=== PATIENT | male | born 1995 | race Caucasian/White ===

== ENCOUNTER 2024-08-30 16:21 | Emergency (ER) | payer OTHER, SELFPAY ==
[2024-08-30 16:28] VITALS: BP 143/91; PULSE 73; TEMP 36.8; O2SAT 98; BMI 23.7
--- NOTE | 2024-08-30 16:39 | PC.NURSE ---
Nail in right hand middle finger, no bleeding at site, skin surrounding warm and pink.
--- NOTE | 2024-08-30 16:40 | XR_ITS ---
The [address] [address] Patient Name: CATARINO SOOD MRN: [id number] date: 1995 Sex: M Assigned Patient Location: ED.MAIN Current Patient Location: Accession/Order Number: [id number] Exam Date: 08/30/2024 16:35 Report Date: 08/30/2024 18:32 At the request of: JOE ACEVEDO Procedure: XR finger RT min 2V EXAM: XR finger RT min 2V HISTORY: Right middle finger FB COMPARISON: 04/18/2009 TECHNIQUE: 3 views of right third digit FINDINGS: There is no acute fracture or dislocation. Distal tip of the nail is noted overlying the dorsal third digit, at the level of the PIP joint and third proximal phalangeal neck. XR/XR finger RT min 2V IMPRESSION: Foreign body as described above. Electronically authenticated by: JAJA HILTON Date: 08/30/2024 18:32
[2024-08-30] MEDS: BUPIVACAINE HCL 0.25% PF 25 MG/10 ML VIAL INJ (17:08)
[2024-08-30] MEDS: CEPHALEXIN 500 MG CAPSULE PO (17:08)
--- NOTE | 2024-08-30 18:14 | ED_ITS ---
HPI HPI - Extremity Injury (Upper) General Chief Complaint: Extremity Injury, Upper Stated Complaint: UPPER EXTREMITY INJURY Time Seen by Provider: 08/30/24 16:28 Source: patient Mode of arrival: walk-in History of Present Illness HPI narrative: 28-year-old male presents to the emergency department with complaint of accidentally firing a nail from a nail gun through the top of his right index finger. Denies having any pain. Denies any motor or sensory changes, paresthesias. Bleeding controlled. Patient states last tetanus is less than 5 years old. Patient is right-handed Quality:?Penetrating trauma Severity:?Mild Timing:?Injury occurred shortly prior to arrival, constant Context: Normal setting and activity? Modifying factors:?None Associated symptoms: None Related Data Previous Rx's ?Medication ?Instructions ?Recorded cephalexin 500 mg capsule 500 mg PO QID 5 days #20 caps 08/30/24 Allergies Allergy/AdvReac Type Severity Reaction Status Date / Time No Known Drug Allergies Allergy Verified 08/30/24 16:30 Opioid HPI Opioid Management Most Recent Pain and Opioid Data: No Data to Display Review of Systems ROS Narrative CONST: Denies activity change, weakness MS: Denies arthralgias.? + joint swelling SKIN: + Wound. Denies color change NEURO: Denies numbness, paresthesias, weakness PFSH PFSH Social History Little interest or pleasure in doing things: not at all Feeling down, depressed, or hopeless: not at all Exam Narrative Exam Narrative: Vital signs noted Nurses notes reviewed CONST: Nontoxic, well appearing, well nourished, in no distress.? HENT: normocephalic, atraumatic. CV: 2+ palpable right radial pulse MS: Right middle finger: +tenderness,swelling to the PIP region of the dorsum, right middle finger through which nail is noted with insertion dorsally, exiting distally along the radial aspect.? No tenderness to the remainder of the finger.? No discoloration, crepitus, deformity, instability, warmth.? Active ROM is full with flexion and extension. ? Strength 5/5 NEURO: Sensory intact throughout and distal to the injury SKIN: intact, warm, dry.? + Puncture wound as previously discussed PSYCHIATRIC: normal mood, affect Constitutional Vital Signs, click to edit/add: Last Vital Signs Temp 98.2 F 08/30/24 16:28 Pulse 73 08/30/24 16:28 Resp 18 08/30/24 16:28 BP 143/91 H 08/30/24 16:28 Pulse Ox 98 08/30/24 16:28 O2 Del Method Room Air 08/30/24 16:28 Course Reevaluation(s) Reevaluation #1: Patient voices no complaint of pain. Nail was successfully removed. See procedure note. Discussed with patient results, plan, and disposition. He is agreeable with plan. Time: 18:10 Vital Signs Vital signs: Vital Signs Temperature 98.2 F 08/30/24 16:28 Pulse Rate 73 08/30/24 16:28 Respiratory Rate 18 08/30/24 16:28 Blood Pressure 143/91 H 08/30/24 16:28 Pulse Oximetry 98 08/30/24 16:28 Oxygen Delivery Method Room Air 08/30/24 16:28 Temperature 98.2 F 08/30/24 16:28 Pulse Rate 73 08/30/24 16:28 Respiratory Rate 18 08/30/24 16:28 Blood Pressure 143/91 H 08/30/24 16:28 Pulse Oximetry 98 08/30/24 16:28 Oxygen Delivery Method Room Air 08/30/24 16:28 MDM - Extremity Injury (Upper) MDM Narrative Medical decision making narrative: This is a pleasant 28-year-old male who presented to the emergency department after accidentally firing a nail from a nail gun through his right middle finger. Patient reports tetanus up-to-date. He voices no complaints of pain. Denies any motor or sensory changes, paresthesias. On arrival, afebrile, vital signs stable. On exam, nontoxic, well appearing patient, in no apparent distress. Through and through nail noted embedded to the dorsal aspect of his right middle finger. Patient displaying, without prompting, full range of motion of the finger with flexion extension. Denies any pain while doing so. Neurovascularly intact. Right index finger x-ray imaging, per radiologist reveals no acute fracture or dislocation. Distal tip of the nail is noted overlying the dorsal third, at the level of the PIP joint and the third proximal phalangeal neck. Soft tissue anesthetized and nail was successfully removed with manual manipulation. The wound was thoroughly irrigated with a Betadine, saline solution. He was given dose of Keflex in the emergency department prophylactically. Favor foreign body, nail gun injury right middle finger Fracture, dislocation less likely based on imaging History and Record Review Additional records reviewed: No prior records Management Independent interpretation: Right middle finger: Foreign body noted without osseous injury noted to the right third finger. Re-Evaluation: See ED Course Disposition ? The patient was discharged. Prescriptions sent to pharmacy: Keflex Patient placed in splint Patient advised rest, ice, elevation, compression Patient advised Ibuprofen/Tylenol as needed for pain Plan: Patient will be discharged to home. Condition at time of disposition: stable, improved. ? Advised to follow up with referral provider, name and number placed on discharge paperwork. Advised to return for any worsening and/or development of new, concerning signs or symptoms PLEASE NOTE: Portions of the medical record may have been produced using electronic estate administrator and may contain errors with respect to translation of words which may not have been identified prior to finalization of the chart. Medical Records Attestation: I reviewed the patient's medical records. Imaging Data right middle finger xray: Radiologist's impression: ITS Impressions Finger X-Ray 08/30/24 16:40 IMPRESSION: Foreign body as described above. Electronically authenticated by: JAJA HILTON Date: 08/30/2024 18:32 Discharge Plan Discharge Chief Complaint: Extremity Injury, Upper Clinical Impression: Puncture wound of finger of right hand Qualifiers: Encounter type: initial encounter Qualified Code(s): S61.239A - Puncture wound without foreign body of unspecified finger without damage to nail, initial encounter Injury of finger by nail gun Qualifiers: Encounter type: initial encounter Laterality: right Qualified Code(s): S69.91XA - Unspecified injury of right wrist, hand and finger(s), initial encounter Patient Disposition: Home, Self-Care Time of Disposition Decision: 18:10 Condition: Good Mode of Transportation: Private Vehicle Prescriptions / Home Meds: New cephalexin 500 mg capsule 500 mg PO QID 5 Days Qty: 20 0RF Print Language: Indonesian Instructions: Puncture Wound (ED) Referrals: Pradeep Estevez MD [Physician] - 1 week Discharge Date/Time: 08/30/24 18:28 Procedures ED FB Foreign Body Removal Foreign Body Removal Foreign Body Removal Site: hand Description of foreign body: other (nail) Sedation/Analgesia: other (bupvipicaine) Technique: manual removal Confirmed by: direct visualization Complications: none Post-procedure exam: awake, alert Neurovascular: normal capillary fill and distal light touch sensation intact Additional Comments: Nail track thoroughly irrigated with saline, Betadine solution, copious amounts. Bacitracin dressing of applied. Patient placed in splint.
[2024-08-30] MEDS: BACITRACIN OINTMENT 28.4 GM TUBE 1 APPLIC TOPICAL (18:19)
== END 2024-08-30 18:28 | disposition home or self-care (01) ==
PROVIDERS: Emergency Provider Emergency Medicine
DX: S61.242A Puncture wound with foreign body of right middle finger without damage to nail, initial encounter (principal); W45.0XXA Nail entering through skin, initial encounter; W29.4XXA Contact with nail gun, initial encounter
CPT/HCPCS: 29130; 73140; 99284; J0665

== ENCOUNTER 2024-10-31 19:46 | Emergency (ER) | payer OTHER, SELFPAY ==
[2024-10-31] VITALS (9 sets, daily range): BP systolic 116–129; BP diastolic 64–75; PULSE 70–76; TEMP 36.8; O2SAT 96–99; BMI 26.4
--- OUTSIDE RECORDS SUMMARY | 2024-10-31 19:52 | XMS_ITS | CCD ---
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 Name Role Phone George, Luke Unavailable Unavailable George, Luke Unavailable Unavailable ALEIDA ORMEO S Unavailable Unavailable ALEIDA ROMEO S Unavailable Unavailable AGUEDA, ALEIDA S Unavailable Unavailable GEORGE, LUKE A Unavailable Unavailable GEORGE, LUKE A Unavailable Unavailable GEORGE, LUKE A Unavailable Unavailable Geroge, Luke Unavailable Unavailable NO FAMILY, PHYSICIAN Primary Care Provider Unava ilable VERONICA Carvajal Attending Provider [phone] Broderick Carvajal Unavailable NO FAMILY, PHYSICIAN Primary Care Unavailable Elton Kovacs Attending Unavailable Elton Kovacs Admitting Unavailable Allergies Allergy Classification Reported Allergen(s) Allergy Type Date of Onset Reaction(s) Facility (3 sources) -No Environmental Allergies Allergy to substance (disorder) [facility] Work Phone: (3 sources) -No Known Food Allergies Allergy to substance (disorder) [facility] Work Phone: (3 sources) NO KNOWN DRUG ALLERGIES Allergy to substance (disorder) [facility] Work Phone: Medications Current Medications Medication Drug Class(es) Dates Sig (Normalized) Sig (Original) Aircast Sport Ankle Brace/Left - (1 source) Start: 08-06-2022 Aircast Sport Ankle Brace/Left - as directed Aug, Active buprenorphine 8 mg / naloxone 2 mg sublingual film (1 source) Partial Opioid Agonist, Opioid Antagonist Suboxone 8-2 MG 1 film under the tongue and allow to dissolve Sublingual Once a day Active busPIRone hydrochloride 7.5 mg oral tablet (1 source) Start: 10-31-2020 take 12 mg by mouth once daily Buspirone Active 12 MG PO Daily October 31, 2020 12:00am ibuprofen 600 mg oral tablet (1 source) Nonsteroidal Anti-inflammatory Drug Start: 10-31-2020 Ibuprofen Active 600 MG PO Every 6 hours October 31, 2020 12:00am do not exceed 4 doses in a 24 hour period Completed/Discontinued Medications Medication Drug Class(es) Dates Sig (Normalized) Sig (Original) amoxicillin 500 mg oral capsule (3 sources) Penicillin-class Antibacterial Start: 03-06-2015 End: 06-30-2015 take 1 capsule by mouth three times daily amoxicillin 500 mg oral capsule 03/06/2015 06/30/2015 take 1 capsule (500 mg) by oral route 3 times per day clindamycin 300 mg oral capsule (3 sources) Lincosamide Antibacterial Start: 03-06-2015 End: 06-30-2015 take 1 capsule by mouth three times daily clindamycin HCl 300 mg oral capsule 03/06/2015 06/30/2015 take 1 capsule by oral route 3 times a day hydrOXYzine hydrochloride 50 mg oral tablet (3 sources) Antihistamine Start: 04-13-2015 End: 01-07-2018 take 1 tablet by mouth three times daily as needed for anxiety hydroxyzine HCl 50 mg oral tablet 04/13/2015 01/07/2018 TAKE 1 TABLET BY MOUTH 3 TIMES DAILY NEEDED FOR ANXIETY PER DR BYERS 24 hr methylphenidate hydrochloride 54 mg extended release oral tablet (6 sources) Central Nervous System Stimulant End: 01-07-2018 take 1 tablet by mouth once daily in the morning Concerta 54 mg oral tablet extended release 24hr 01/07/2018 take 1 tablet (54 mg) by oral route once daily in the morning mirtazapine 30 mg oral tablet (3 sources) Start: 05-12-2015 End: 01-07-2018 take 1 tablet by mouth once daily at bedtime mirtazapine 30 mg oral tablet 05/12/2015 01/07/2018 take 1 tablet (30 mg) by oral route once daily at bedtime per dr Byers naltrexone hydrochloride 50 mg oral tablet (3 sources) Opioid Antagonist Start: 05-26-2015 End: 01-07-2018 take 1 tablet by mouth once naltrexone 50 mg oral tablet 05/26/2015 01/07/2018 TAKE 1 TABLET BY MOUTH EVER DAY PER DR BYERS naproxen 500 mg oral tablet (4 sources) Nonsteroidal Anti-inflammatory Drug Start: 03-09-2018 take 1 tablet by mouth twice daily at mealtime as needed for pain naproxen 500 mg oral tablet 03/09/2018 take 1 tablet (500 mg) by oral route 2 times per day with food as needed for pain Start: 03-06-2015 End: 06-30-2015 take 1 tablet by mouth twice daily at mealtime naproxen 500 mg oral tablet 03/06/2015 06/30/2015 take 1 tablet (500 mg) by oral route 2 times per day with food traZODone hydrochloride 150 mg oral tablet (3 sources) Serotonin Reuptake Inhibitor End: 06-30-2015 take 1 tablet by mouth once daily at bedtime trazodone 150 mg oral tablet 06/30/2015 take 1 tablet by oral route once a day (at bedtime) 24 hr venlafaxine 75 mg extended release oral capsule (6 sources) Serotonin and Norepinephrine Reuptake Inhibitor Start: 04-13-2015 End: 01-07-2018 take 1 capsule by mouth once daily at bedtime venlafaxine 75 mg oral capsule,extended release 24hr 04/13/2015 01/07/2018 TAKE 1 CAPSULE BY MOUTH ONCE DAILY AT BEDTIME PER DR BYERS Start: 04-13-2015 End: 04-27-2015 take 1 capsule by mouth every twenty-four hours at bedtime venlafaxine 37.5 mg oral capsule,extended release 24hr 04/13/2015 04/27/2015 TAKE 1 CAPSULE BY MOUTH AT BEDTIME FOR 7 DAYS THEN INCREASE TO VENLAFAXINE [address] BYERS zolpidem tartrate 10 mg oral tablet (3 sources) gamma-Aminobutyric Acid-ergic Agonist Start: 04-13-2015 End: 01-07-2018 take 1 tablet by mouth once daily at bedtime as needed zolpidem 10 mg oral tablet 04/13/2015 01/07/2018 TAKE 1 TABLET BY MOUTH DAILY AT BEDTIME NEEDED PER DR BYERS Problems Active Problems Problem Classification Problem Date Documented Da te Episodic/Chronic Alcohol-related disorders (3 sources) Alcohol abuse; Translations: [Alcohol use disorder, mild, in early remission, in controlled environment] Onset: 06-30-2015 Chronic External Injury - Fall (1 source) Unspecified fall, initial encounter; Translations: [Unspecified fall, initial encounter] Onset: 02-02-2018 Open wounds of head; neck; and trunk (1 source) Puncture wound without foreign body of scalp, initial encounter; Translations: [Puncture wound without foreign body of scalp, initial encounter] Onset: 02-20-2018 Episodic Other injuries and conditions due to external causes (1 source) Unspecified injury of left foot, initial encounter Episodic Other injuries and conditions due to external causes (1 source) Unspecified injury of right wrist, hand and finger(s), initial encounter; Translations: [Unspecified injury of right wrist, hand and finger(s), initial encounter] Onset: 08-30-2024 Episodic Spondylosis; intervertebral disc disorders; other back problems (1 source) Dorsalgia, unspecified; Translations: [Dorsalgia, unspecified] Onset: 02-17-2018 Episodic Sprains and strains (1 source) Sprain of unspecified ligament of left ankle, initial encounter Episodic Substance-related disorders (3 sources) Dependent drug abuse; 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] Onset: 06-30-2015 Chronic Superficial injury; contusion (1 source) Abrasion of scalp, initial encounter; Translations: [Abrasion of scalp, initial encounter] Onset: 02-20-2018 Episodic Unclassified (1 source) Pain, unspecified; Translations: [Pain, unspecified] Onset: 02-02-2018 Unclassified (1 source) post fall / post fall() Onset: 02-02-2018 Unclassified (1 source) right foot knee pain / right foot knee pain() Onset: 02-02-2018 Viral infection (1 source) Jazmyne-Morel virus hepatitis; Translations: [Infectious mononucleosis, unspecified with other complication] 10-31-2020 Episodic Past or Other Problems Problem Classification Problem Date Documented Da te Episodic/Chronic Hepatitis (3 sources) Viral hepatitis C; Translations: [Hepatitis C] Onset: 06-30-2015 Episodic Unclassified (1 source) post fall; Translations: [post fall] Onset: 02-02-2018 Unclassified (1 source) right foot knee pain; Translations: [right foot knee pain] Onset: 02-02-2018 Results Test Name Value Interpretation Reference Range Facility XR foot LT min 3V*on 022 XR foot LT min 3V* [facility] Professional [employer] Other XR foot LT min 3V* [facility] [place] [facility] Other XR foot LT min 3V* [address] [facility] Other XR foot LT min 3V* LAUREANO Kenny [address] [facility] Other XR foot LT min 3V* XRay Report [facility] Other XR foot LT min 3V* Signed [facility] Other XR foot LT min 3V* Patient: Mickey Villa MR#: [id number] [facility] Other XR foot LT min 3V* 3 [facility] Other XR foot LT min 3V* : 1995 Acct:[id number] [facility] Other XR foot LT min 3V* Age/Sex: 26 / M ADM Date: 08/06/22 [facility] Other XR foot LT min 3V* Loc: [id number] Room: Type: [facility] Other XR foot LT min 3V* Attending Dr: Broderick Carvajal PA-C [facility] Other XR foot LT min 3V* Copies to: JAMES Rausch [facility] Other XR foot LT min 3V* Ordering Provider: JAMES Rausch [facility] Other XR foot LT min 3V* Date of Service: 08/06/22 [facility] Other XR foot LT min 3V* XR/XR foot LT min 3V*: Injury of left foot, initial encounter [facility] Other XR foot LT min 3V* ([id number]) XR/XR ankle LT min 3V*: Injury of left foot, initial encounter [facility] Other XR foot LT min 3V* 3views LEFTankle [facility] Other XR foot LT min 3V* COMPARISON:None N [facility] [employer] Other XR foot LT min 3V* HISTORY: LEFT foot a nd ankle injury [facility] Other XR foot LT min 3V* Lateral and anterior soft tissue swelling. Ankle mortise preserved. No fracture or dislocation. [facility] Other XR foot LT min 3V* XR/XR ankle LT min 3V* [facility] Other XR foot LT min 3V* IMPRESSION: No acute bony findings [facility] Other XR foot LT min 3V* 3 views LEFT foot [facility] Other XR foot LT min 3V* No fracture or dislocation. Soft tissues unremarkable. [facility] Other XR foot LT min 3V* IMPRESSION: No acute bony findings. [facility] Other XR foot LT min 3V* Impression dictated by: Sylvester Gaytan M.D.08/06/2022 5:25 PM [facility] Other XR foot LT min 3V* Dictation Location: [place] [address] [facility] Other XR foot LT min 3V* Transcribed By: [facility] 08/06/22 172 [facility] Other XR foot LT min 3V* Dictated By: Sylvester Gaytan DO 08/06/22 [facility] Other XR foot LT min 3V* Signed By: [facility] Other XR foot LT min 3V* 08/06/[address] [place] [address] [employer] Other US RENAL LIMITEDon 8 US RENAL LIMITED REPORT: Ultrasound retroperitoneal limitedTECHNIQUE: High-resolution sonographic evaluation of the kidneys only performed.INDICATION: CVA tendernessFINDINGS: Normal renal cortical thickness and echogenicity bilaterally. The right kidney measures 10.7 x 5.6 x 4.3 cm. The left kidney measures 11.7 x 5.3 x 4.4 cm. No sonographic evidence of hydronephrosis, calculus or mass lesion.Final report electronically signed by Kelin Ramirez on 02/17/2018 2:41 PMIMPRESSION: Normal sonographic evaluation of the kidneys Interpreted by:CESAR Vasquezigned by:Kelin Ramirez MD02/17/18inal result Normal [facility] Metabolic Panelon 02-16-2018 Protein improving lifestyle behaviors Invalid Interpretation Code [facility] Otheron 02-16-2018 0=No Invalid Interpretation Code [facility] 7 Invalid Interpretation Code [facility] 1=Yes Invalid Interpretation Code [facility] 0= N/A Invalid Interpretation Code [facility] Risk Level 4=>10 Invalid Interpretation Code [facility] 3=Yes Invalid Interpretation Code [facility] 0-N/A Invalid Interpretation Code [facility] improving lifestyle behaviors Invalid Interpretation Code [facility] 11 Invalid Interpretation Code [facility] Urinalysis specialist review WNL Invalid Interpretation Code [facility] XR FOOT RIGHT (MIN 3 VIEWS)o n 02-03-2018 XR FOOT RIGHT (MIN 3 VIEWS) REPORT: 3 views right footINDICATION: Pain status post fall, medial sideFINDINGS: No acute fracture or dislocation is seen. Joint spaces are preserved. Mild hallux valgus deformity of the 1st MTP articulation. No definite soft tissue swelling.Final report electronically signed by Kelin Ramirez on 02/03/2018 9:22 AMIMPRESSION: NO ACUTE PROCESS SEENInterpreted by:CESAR Vasquezigned by:Kelin Ramirez MD//18Final result Normal [facility] XR KNEE RIGHT (3 VIEWS)on XR KNEE RIGHT (3 VIEWS) REPORT: 3 views right kneeINDICATION: Pain status post fallFINDINGS: No acute fracture or dislocation is seen. Joint spaces are preserved. No joint effusion. Prepatellar soft tissue swelling.Final report electronically signed by Kelin Ramirez on 02/03/2018 9:23 AMIMPRESSION: PREPATELLAR SOFT TISSUE SWELLINGInterpreted by:CESAR Vasquezigned by:Kelin Ramirez MD02/03/18Final result [facility]acon 01-07-2018 Cholesterol 147 mg/dL Invalid Interpretation Code <200 [facility] HDL Cholesterol 47.0 mg/dL Invalid Interpretation Code >39 [facility] Triglyceride 115.0 mg/dL Invalid Interpretation Code <150 [facility] Hematologyon 01-07-2018 Basophils Auto #/vol (Bld) 0.5 % Invalid Interpretation Code [facility] Basophils/100 WBC Auto (Bld) 0.0 K/uL Invalid Interpretation Code 0.0-0.1 [facility] Eosinophils/100 leukocytes 3.1 % Invalid Interpretation Code [facility] Erythrocyte distribution width Auto Ratio (RBC) 13.3 % Invalid Interpretation Code 10.8-14.8 [facility] Erythrocytes (RBC) 5.090 10*6/uL Invalid Interpretation Code 4.00-5.50 [facility] Hematocrit (HCT) 44.80 % Invalid Interpretation Code 41.4-51.0 [facility] Hemoglobin S presence 15.6 Invalid Interpretation Code 13.8-17.0 [facility] Lipoprotein a mass conc 0.3 10*3/uL Invalid Interpretation Code 0.1-0.4 [facility] Lipoprotein a mass conc 2.0 10*3/uL Invalid Interpretation Code 0.8-5.2 [facility] Lipoprotein a mass conc 0.7 10*3/uL Invalid Interpretation Code 0.1-0.9 [facility] Lipoprotein a mass conc 4.9 10*3/uL Invalid Interpretation Code 1.3-9.1 [facility] Lymphocytes/100 leukocytes 25.7 % Invalid Interpretation Code [facility] MCH 30.6 pg Invalid Interpretation Code 27.0-34.0 [facility] MCHC mass conc (RBC) 34.8 g/dL Invalid Interpretation Code 31.0-36.0 [facility] MCV 88.0 fL Invalid Interpretation Code 80.-100. [facility] Monocytes/100 leukocytes 8.3 % Invalid Interpretation Code [facility] Neutrophils/100 leukocytes 62.0 % Invalid Interpretation Code [facility] WBC (Leukocytes) 7.9 10*3/uL Invalid Interpretation Code 3.7-10.8 [facility] Imm/Pathon 01-07-2018 Hepatitis C antibody presence Positive Invalid Interpretation Code NEGATIVE [facility] Hepatitis C genotype 2 Invalid Interpretation Code [facility] Metabolic Panelon 01-07-2018 Alanine aminotransferase (ALT) 24 U/L Invalid Interpretation Code 5-50 [facility] Albumin 5.10 g/dL Invalid Interpretation Code 3.5-5.2 [facility] Alkaline phosphatase (ALP) 117 U/L Invalid Interpretation Code 39-118 [facility] Anion gap 17 mmol/L Invalid Interpretation Code 10-19 [facility] Aspartate aminotransferase (AST) 22 U/L Invalid Interpretation Code 9-50 [facility] Calcium 9.80 mg/dL Invalid Interpretation Code 8.5-10.5 [facility] Chloride 100 mmol/L Invalid Interpretation Code 95-107 [facility] CO2 25 mmol/L Invalid Interpretation Code 19-31 [facility] Creatinine 0.80 mg/dL Invalid Interpretation Code 0.8-1.4 [facility] eGFR (non-black) 145.9 mL/min/{1.73_m2} Invalid Interpretation Code >59 [facility] eGFR (non-black) 125.9 mL/min/{1.73_m2} Invalid Interpretation Code >59 [facility] Glucose mass conc 92 mg/dL Invalid Interpretation Code 70-99 [facility] Potassium molar conc 4.0 mmol/L Invalid Interpretation Code 3.5-5.4 [facility] Protein 7.6 g/dL Invalid Interpretation Code 6.1-8.3 [facility] Sodium 142 mmol/L Invalid Interpretation Code 135-146 [facility] Urea nitrogen 13.0 mg/dL Invalid Interpretation Code 8-23 [facility] Protein improving lifestyle behaviors Invalid Interpretation Code [facility] Otheron 01-07-2018 Bilirubin Ql (U) 0.6 Invalid Interpretation Code <1.3 [facility] Cholesterol crystals Infrared spectroscopy Ql (Stone) 147 mg/dL Invalid Interpretation Code <200 [facility] Cholesterol to HDL Ratio 3.1 {ratio} Invalid Interpretation Code <5 [facility] HCV RNA SerPl PCR-aCnc 2897521.0 IU/mL Invalid Interpretation Code H [facility] LDL to HDL Ratio 1.6 Invalid Interpretation Code <3.5 [facility] Lipoprotein.beta/Li poprotein.alpha mass ratio 1.6 Invalid Interpretation Code <3.5 [facility] PreB-LP SerPl-mCnc 23.0 mg/dL Invalid Interpretation Code <30 [facility] PreB-LP SerPl-mCnc 77.0 mg/dL Invalid Interpretation Code <130 [facility] WBC LM Ql (Sput) 7.9 Invalid Interpretation Code 3.7-10.8 [facility] 7.6 Invalid Interpretation Code 6.1-8.3 [facility] Negative Invalid Interpretation Code NEGATIVE [facility] 6.549 Invalid Interpretation Code H [facility] 182 Invalid Interpretation Code 150.-450. [facility] 145.9 Invalid Interpretation Code >59 [facility] 125.9 Invalid Interpretation Code >59 [facility] 0=No Invalid Interpretation Code [facility] improving lifestyle behaviors Invalid Interpretation Code [facility] Risk Level 4=>10 Invalid Interpretation Code [facility] 11 Invalid Interpretation Code [facility] 7 Invalid Interpretation Code [facility] 3=Yes Invalid Interpretation Code [facility] 0=N/A Invalid Interpretation Code [facility] 1=Yes Invalid Interpretation Code [facility] 0-N/A Invalid Interpretation Code [facility] 2 Invalid Interpretation Code [facility] Thyroidon 01-07-2018 Thyroid stimulating hormone (TSH) 1.140 uIU/mL Invalid Interpretation Code 0.4-4.1 [facility] Cardiacon 03-06-2015 Cholesterol 175 mg/dL Invalid Interpretation Code <200 [facility] HDL Cholesterol 68.0 mg/dL Invalid Interpretation Code 40-60 [facility] Triglyceride 120.0 mg/dL Invalid Interpretation Code <150 [facility] Imm/Pathon 03-06-2015 Hepatitis C genotype 2 Invalid Interpretation Code [facility] Metabolic Panelon 03-06-2015 Alanine aminotransferase (ALT) 33.0 U/L Invalid Interpretation Code 5-59 [facility] Albumin 4.20 g/dL Invalid Interpretation Code 3.2-5.3 [facility] Alkaline phosphatase (ALP) 89.0 U/L Invalid Interpretation Code 35-121 [facility] Anion gap 11 mmol/L Invalid Interpretation Code [facility] Aspartate aminotransferase (AST) 20.0 U/L Invalid Interpretation Code 10-42 [facility] Calcium 9.20 mg/dL Invalid Interpretation Code 8.7-10.8 [facility] Chloride 106 mmol/L Invalid Interpretation Code 95-111 [facility] CO2 25 mmol/L Invalid Interpretation Code 21-32 [facility] [employer] [facility] Creatinine 0.70 mg/dL Invalid Interpretation Code 0.5-1.3 [facility] eGFR (non-black) 144 mL/min/{1.73_m2} Invalid Interpretation Code >60 [facility] eGFR (non-black) 174 mL/min/{1.73_m2} Invalid Interpretation Code >60 [facility] Glucose mass conc 91 mg/dL Invalid Interpretation Code 70-100 [facility] Potassium molar conc 4.40 mmol/L Invalid Interpretation Code 3.5-5.4 [facility] Protein 7.0 g/dL Invalid Interpretation Code 5.8-8.0 [facility] Sodium 138 mmol/L Invalid Interpretation Code 134-147 [facility] Urea nitrogen 20.0 mg/dL Invalid Interpretation Code 10-20 [facility] Otheron 03-06-2015 7 Invalid Interpretation Code [facility] 4.0 Units Invalid Interpretation Code < 9 [facility] Zidisha 0.0 Units Invalid Interpretation Code <= 0 [facility] 1 Invalid Interpretation Code [facility] Bilirubin Ql (U) 0.4 Invalid Interpretation Code 0.2-1.3 [facility] Cholesterol crystals Infrared spectroscopy Ql (Stone) 175 mg/dL Invalid Interpretation Code <200 [facility] [employer] [facility] Cholesterol to HDL Ratio 2.6 {ratio} Invalid Interpretation Code <5 [facility] [employer] [facility] HCV RNA SerPl [facility] [id number] IU/mL Invalid Interpretation Code H [facility] [employer] [facility] LDL to HDL Ratio 1.2 Invalid Interpretation Code <3.5 [facility] Lipoprotein.beta/Li poprotein.alpha mass ratio 1.2 Invalid Interpretation Code <3.5 [facility] PreB-LP SerPl-mCnc 83.0 mg/dL Invalid Interpretation Code <130 [facility] PreB-LP SerPl-mCnc 24.0 mg/dL Invalid Interpretation Code <30 [facility] 6.888 Invalid Interpretation Code H [facility] 7.0 Invalid Interpretation Code 5.8-8.0 [facility] 174 Invalid Interpretation Code >60 [facility] 144 Invalid Interpretation Code >60 [facility] Thyroidon 03-06-2015 Thyroid stimulating hormone (TSH) 2.050 uIU/mL Invalid Interpretation Code 0.40-4.40 [facility] Vital Signs Date Time Vital Sign Value Performing Clinician Facility 08-06-2022 18:05-0500 Body height Broderick Carvajal Other [facility] Other 08-06-2022 18:05-0500 Body mass index (BMI) [Ratio] 23.05 kg/m2 Broderick Carvajal Other [facility] Other 08-06-2022 18:05-0500 Body temperature 98 [degF] Broderick Carvajal Other [facility] Other 08-06-2022 18:05-0500 Body weight 77.11 kg Broderick Carvajal Other [facility] Other 08-06-2022 18:05-0500 Diastolic blood pressure 70 mm[Hg] Broderick Carvajal Other [facility] Other 08-06-2022 18:05-0500 Respiratory rate 20 /min Broderick Carvajal Other [facility] Other 08-06-2022 18:05-0500 SaO2% (BldA) [Mass fraction] 99 % Broderick Carvajal Other [facility] Other 08-06-2022 18:05-0500 Systolic blood pressure 118 mm[Hg] Broderick Carvajal Other [facility] Other 03-09-2018 17:18-0400 BMI (Body Mass Index) 24.01 kg/m2 [facility] 03-09-2018 17:18-0400 Body Temperature 98 [degF] [facility] 03-09-2018 17:18-0400 BP Diastolic 72 mm[Hg] [facility] 03-09-2018 17:18-0400 BP Systolic 110 mm[Hg] [facility] 03-09-2018 17:18-0400 BSA (Body Surface Area) 2.02 m2 [facility] 03-09-2018 17:18-0400 Height 182.88 cm [facility] 03-09-2018 17:18-0400 Pulse (Heart Rate) 113 /min [facility] 03-09-2018 17:18-0400 Pulse Oximetry 98 % [facility] 03-09-2018 17:18-0400 Respiratory Rate 18 /min [facility] 03-09-2018 17:18-0400 Weight 80.29 kg [facility] 02-16-2018 12:32-0400 BMI (Body Mass Index) 23.48 kg/m2 [facility] 02-16-2018 12:32-0400 Body Temperature 98.3 [degF] [facility] 02-16-2018 12:32-0400 BP Diastolic 60 mm[Hg] [facility] 02-16-2018 12:32-0400 BP Systolic 104 mm[Hg] [facility] 02-16-2018 12:32-0400 BSA (Body Surface Area) 2 m2 [facility] 02-16-2018 12:32-0400 Height 182.88 cm [facility] 02-16-2018 12:32-0400 Pulse (Heart Rate) 90 /min [facility] 02-16-2018 12:32-0400 Pulse Oximetry 98 % [facility] 02-16-2018 12:32-0400 Respiratory Rate 18 /min [facility] 02-16-2018 12:32-0400 Weight 78.53 kg [facility] 01-07-2018 11:03-0400 BMI (Body Mass Index) 23.62 kg/m2 [facility] 01-07-2018 11:03-0400 Body Temperature 98.1 [degF] [facility] 01-07-2018 11:03-0400 BP Diastolic 84 mm[Hg] [facility] 01-07-2018 11:03-0400 BP Systolic 130 mm[Hg] [facility] 01-07-2018 11:03-0400 BSA (Body Surface Area) 2 m2 [facility] 01-07-2018 11:03-0400 Height 182.88 cm [facility] 01-07-2018 11:03-0400 Pulse (Heart Rate) 84 /min [facility] 01-07-2018 11:03-0400 Pulse Oximetry 98 % [facility] 01-07-2018 11:03-0400 Respiratory Rate 18 /min [facility] 01-07-2018 11:03-0400 Weight 78.98 kg [facility] 06-30-2015 17:18-0400 BMI (Body Mass Index) 28.75 kg/m2 [facility] 06-30-2015 17:18-0400 Body Temperature 98.2 [degF] [facility] 06-30-2015 17:18-0400 BP Diastolic 75 mm[Hg] [facility] 06-30-2015 17:18-0400 BP Systolic 132 mm[Hg] [facility] 06-30-2015 17:18-0400 BSA (Body Surface Area) 2.21 m2 [facility] 06-30-2015 17:18-0400 Height 182.88 cm [facility] 06-30-2015 17:18-0400 Pulse (Heart Rate) 68 /min [facility] 06-30-2015 17:18-0400 Respiratory Rate 16 /min [facility] 06-30-2015 17:18-0400 Weight 96.16 kg [facility] 03-06-2015 15:48-0400 BMI (Body Mass Index) 24.55 kg/m2 [facility] 03-06-2015 15:48-0400 Body Temperature 97.8 [degF] [facility] 03-06-2015 15:48-0400 BP Diastolic 62 mm[Hg] [facility] 03-06-2015 15:48-0400 BP Systolic 121 mm[Hg] [facility] 03-06-2015 15:48-0400 BSA (Body Surface Area) 2.04 m2 [facility] 03-06-2015 15:48-0400 Height 182.88 cm [facility] 03-06-2015 15:48-0400 Pulse (Heart Rate) 78 /min [facility] 03-06-2015 15:48-0400 Respiratory Rate 16 /min [facility] 03-06-2015 15:48-0400 Weight 82.1 kg [facility] Encounters Encounter Date Encounter Type Care Provider Facility Start: 08-30-2024 End: 08-30-2024 Emergency department patient visit PHYSICIAN NO FAMILY Facility:[facility] Start: 08-06-2022 End: 08-06-2022 Patient encounter procedure PHYSICIAN NO FAMILY [facility] Start: 08-06-2022 End: 08-06-2022 ambulatory PHYSICIAN NO [facility] Work Phone: Start: 08-06-2022 Office outpatient vi sit 15 minutes [facility] [address] Start: 03-09-2018 Office outpatient vi sit 15 minutes [place] Other [facility] Start: 02-20-2018 End: 02-20-2018 Emergency department patient visit [place] [facility] Start: 02-17-2018 End: 02-20-2018 Ambulatory [place] [facility] Start: 02-16-2018 Office outpatient vi sit 15 minutes [place] Other [facility] Start: 02-16-2018 Us abdominal real ti me w/image limited [facility] Start: 02-02-2018 End: 02-05-2018 Ambulatory [facility] ROMEO [facility] Start: 01-07-2018 Comprehensive metabo lic panel [facility] Start: 01-07-2018 Office outpatient ne w 45 minutes [place] Other [facility] Start: 06-30-2015 Substance Abuse Daryl Esperanza Other [facility] Start: 06-30-2015 Office outpatient vi sit 15 minutes Deborah Sams Other [facility] Start: 03-06-2015 Comprehensive metabo lic panel [facility] Start: 03-06-2015 Iadna hepatitis c qu ant & reverse transfer specialist [facility] Start: 03-06-2015 Nfct agnt genotyp nu cleic acid hepatitis c virus [facility] Start: 03-06-2015 Office outpatient ne w 20 minutes Michael Summers Other [facility] Procedures Date Procedure Procedure Detail Performing Clinician Start: 08-06-2022 X-ray of left ankle PHY SICIAN NO FAMILY Start: 08-06-2022 X-ray of left foot PHYS ICIAN NO FAMILY Start: 02-17-2018 Us retroperitoneal r eal time w/image limited ALEIDA ROMEO Start: 02-16-2018 PHQ9 Administered [place] Start: 02-16-2018 SBIRT- Full Screen * POSITIVE* Referred to Provider [place] Start: 02-16-2018 Us abdominal real ti me w/image limited [place] Start: 02-16-2018 Urnls dip stick/tabl et rgnt non-auto w/o micrscp [place] Start: 02-02-2018 Radex foot complete minimum 3 views ALEIDA ROMEO Start: 02-02-2018 Radiologic examinati on knee 3 views ALEIDA ROMEO Start: 01-07-2018 Acute hepatitis panel L celine George Start: 01-07-2018 Assay of thyroid sti mulating hormone tsh [place] Start: 01-07-2018 Blood count complete auto&auto difrntl wbc [place] Start: 01-07-2018 Collection venous bl ood venipuncture [place] Start: 01-07-2018 Comprehensive metabolic panel [place] Start: 01-07-2018 Iadna hepatitis c qu ant & reverse transfer specialist [place] Start: 01-07-2018 Lipid panel [place] Start: 01-07-2018 Nfct agnt genotyp nu cleic acid hepatitis c virus [place] Start: 01-07-2018 Pt-focused hlth risk assmt score doc stnd instrm [place] Start: 01-07-2018 Urnls dip stick/tabl et rgnt non-auto w/o micrscp [place] Start: 06-30-2015 HIV Refused [place] Start: 06-30-2015 Behavioral Health Coordination of Care [place] Start: 06-30-2015 PHQ9 Administered [place] Start: 06-30-2015 Psychotherapy w/jonah ent 30 minutes [place] Start: 06-30-2015 SBIRT: Referral to Treatment [place] Start: 06-30-2015 Screening, Brief Intervention, Referral and Treatment (Indicate category below) [place] Start: 03-06-2015 HIV Refused [place] Start: 03-06-2015 Assay of thyroid sti mulating hormone tsh [place] Start: 03-06-2015 Blood count complete auto&auto difrntl wbc [place] Start: 03-06-2015 Collection venous bl ood venipuncture [place] Start: 03-06-2015 Comprehensive metabolic panel [place] Start: 03-06-2015 Iadna hepatitis c qu ant & reverse transfer specialist [place] Start: 03-06-2015 Lipid panel [place] Start: 03-06-2015 Nfct agnt genotyp nu cleic acid hepatitis c virus [place] Start: 03-06-2015 Psychiatry: Coordina tion of Care for [facility] [place] Plan of Treatment Date Care Activity Detail Author Start: 02-16-2018 Ultrasonography of abdomen Limited abdominal ultrasound [facility] Payers Date Payer Category Payer Medicaid [id number] 2024 Self-pay [id number] 2018 Unknown NONE [id number] 2017 Private Health Insurance [id number] Medicaid [place] [employer] [id number] Unknown [id number] Unknown [id number] Social History Date Type Detail Facility Start[facility] Start: Current every day smoker [facility] Start: 10-31-2020 Tobacco smoking status NHIS Smoker (finding) [facility] Start: 1995 Sex Assigned At Male F [facility] Sex Assigned At Sex Assigned At Bir th [place] [employer] Other Evaluation note 08-06-2022 Note Date & Type Note Facility 08-06-2022 Evaluation note Encounter Date Diagnosis Assessment Notes Aug, Injury of left foot, initial encounter (ICD-10 - S99.922A) FINAL READ shows no acute bony abnormality. Results were reviewed and discussed with pt in office at time of visit and they verbally understood these findings. Aug, Sprain of left ankle, unspecified ligament, initial encounter (ICD-10 - S93.402A) Pt to take otc nsaid prn as directed for pain and swelling. Ice first 48 hrs as directed, then moist heat thereafter. Air cast splint applied in office today. Pt to wear as directed. Educated them of s/sx of vascular compromise that would indicate the splint is too tight. N/v signs intact in office today. RICE therapy. No heavy lifting or strenuous exercise. Use crutches he has as needed to remain non-weight bearing. Pt to f/u as needed for any persistent or worsening symptoms. Pt understood and agreed to treatment plan. [facility] Other Evaluation note Note Date & Type Note Facility Evaluation note No assessment information [facility] Work Phone: History of Past Illness Name Date of Onset Comments Bipolar disorder, unspecified Anxiety and depression Drug addiction in remission 06/30/2015 Hepatitis C 06/30/2015 Alcohol use disorder, mild, in early remission, in controlled environment 06/30/2015 Hep C w/o coma, chronic Mar 06 2015 1:53PM Hepatitis C Jun 30 2015 3:21PM Encounter for general health examination Jun 30 2015 3:21PM Drug addiction in remission Jun 30 2015 3:21PM Opioid use disorder, severe, in early remission, in controlled environment Jun 30 2015 3:33PM Cannabis use disorder, sever e, in early remission, in controlled environment Jun 30 2015 3:33PM Alcohol use disorder, mild, in early remission, in controlled environment Jun 30 2015 3:33PM Screening for diabetes mellitus Jan 07 2018 9:09A M CVA tenderness Jan 07 2018 9:09AM Hematuria Jan 07 2018 9:09AM Opioid use disorder, severe, dependence January 07 9:09AM BMI 23.0-23.9, adult Jan 07 2018 9:09AM Hepatitis C Jan 07 2018 9:09AM CVA tenderness Feb 16 2018 10:36AM BMI 23.0-23.9, adult Feb 16 2018 10:36AM Name Date of Onset Comments Bipolar disorder, unspecified Anxiety and depression Drug addiction in remission 06/30/2015 Hepatitis C 06/30/2015 Alcohol use disorder, mild, in early remission, in controlled environment 06/30/2015 Hep C w/o coma, chronic Mar 06 2015 1:53PM Hepatitis C Jun 30 2015 3:21PM Encounter for general health examination Jun 30 2015 3:21PM Drug addiction in remission Jun 30 2015 3:21PM Opioid use disorder, severe, in early remission, in controlled environment Jun 30 2015 3:33PM Cannabis use disorder, sever e, in early remission, in controlled environment Jun 30 2015 3:33PM Alcohol use disorder, mild, in early remission, in controlled environment Jun 30 2015 3:33PM Screening for diabetes mellitus Jan 07 2018 9:09A M CVA tenderness Jan 07 2018 9:09AM Hematuria Jan 07 2018 9:09AM Opioid use disorder, severe, dependence January 07 9:09AM BMI 23.0-23.9, adult Jan 07 2018 9:09AM Hepatitis C Jan 07 2018 9:09AM CVA tenderness Feb 16 2018 10:36AM BMI 23.0-23.9, adult Feb 16 2018 10:36AM Name Date of Onset Comments Bipolar disorder, unspecified Anxiety and depression Drug addiction in remission 06/30/2015 Hepatitis C 06/30/2015 Alcohol use disorder, mild, in early remission, in controlled environment 06/30/2015 Hep C w/o coma, chronic Mar 06 2015 1:53PM Hepatitis C Jun 30 2015 3:21PM Encounter for general health examination Jun 30 2015 3:21PM Drug addiction in remission Jun 30 2015 3:21PM Opioid use disorder, severe, in early remission, in controlled environment Jun 30 2015 3:33PM Cannabis use disorder, sever e, in early remission, in controlled environment Jun 30 2015 3:33PM Alcohol use disorder, mild, in early remission, in controlled environment Jun 30 2015 3:33PM Screening for diabetes mellitus Jan 07 2018 9:09A M CVA tenderness Jan 07 2018 9:09AM Hematuria Jan 07 2018 9:09AM Opioid use disorder, severe, dependence January 07 9:09AM BMI 23.0-23.9, adult Jan 07 2018 9:09AM Hepatitis C Jan 07 2018 9:09AM CVA tenderness Feb 16 2018 10:36AM BMI 23.0-23.9, adult Feb 16 2018 10:36AM BMI 22.0-22.9, adult Mar 09 2018 3:22PM CVA tenderness Mar 09 2018 3:22PM Summary Purpose Family History No Family History Records FoundNo Family History Records Found Advance Directives No Advanced Directives Records Found Advance Directive Response Recorded Date/ Time Advance Directives No July 3:39pm Additional Source Comments (unrecognized sect ion and content) No Status Records FoundNo Status Records Found INFORMATION SOURCE (unrecogn ized section and content) DATE CREATED AUTHOR 02/20/2018 [facility] DATE CREATED AUTHOR AUTHOR'S ORGANIZ ATION 09/17/2024 [facility] Care Teams (unrecognized sec tion and content) Team Status: Inactive Member Role Status Dates PHYSICIAN NO FAMILY Primary Care Provider Active Broderick Carvajal PA-C Attending Provider Active Team Status: Active Member Role Status Dates PHYSICIAN NO FAMILY Primary Care Provider Active Goals (unrecognized section and content) Goals may be documented in a n alternate sectionNo Information REASON FOR VISIT (unrecogniz ed section and content) left ankle injury FOR RECORDS PERTAINING TO PATIENTS WHO ARE OR HAVE BEEN ENROLLED IN A CHEMICAL DEPENDENCY/SUBSTANCEABUSE PROGRAM, SOME INFORMATION MAY BE OMITTED. This clinical summary was aggregated from multiple sources. Caution should be exercised in using it in the provision of clinical care. This summary normalizes information from multiple sources, and as a consequence, information in this document may materially change the coding, format and clinical context of patient data. In addition, data may be omitted in some cases. CLINICAL DECISIONS SHOULD BE BASED ON THE PRIMARY CLINICAL RECORDS. [facility] [employer] provides no warranty or guarantee of the accuracy or completeness of information in this document.
--- NOTE | 2024-10-31 20:03 | ECG_ITS ---
[facility] Test Date: 2024-10-31 Pat Name: CATARINO SOOD Department: Room: - Gender: Male [place]: : 1995 Requested By: [id number] Order Number: [id number] Reading MD: LUC YUAN Measurements Intervals [place] Rate: 61 P: 67 [place]: 132 QRS: -28 QRSD: 96 T: 56 QT: 402 QTc: 406 Interpretive Statements 1100 Sinus rhythm 7300 Indeterminate axis 9120 atypical ECG No previous ECG available for comparison Electronically Signed On 11-01-2024 7:01:03 EST by LUC YUAN
--- NOTE | 2024-10-31 20:04 | ED_ITS ---
HPI - URI/Sore Throat General Chief Complaint: Upper Respiratory Infection Stated Complaint: Upper Respiratory Infection Time Seen by Provider: 10/31/24 19:59 Source: patient Limitations: no limitations History of Present Illness HPI Narrative: Patient is a 29-year-old male presents to the ER with concerns of cough and chest pain. Patient states last week he had an upper respiratory infection, no measurable fever. Similar productive cough and he smokes half a pack per day. He denies any history of PE or DVT. He denies any recent long travels flights or surgeries. Patient notes in the last 2 days he has had tenderness with cough ing mostly anterior chest he denies pain into his back. He notes some mild sharp pain with deep breath at times. He is still ambulatory and active despite symptoms. He appears in no distress at bedside and took Motrin earlier today for symptoms. He denies any vomiting or diarrhea. Patient speaking in full sentences and appears in no distress. MD elicited complaint: Reports cough Onset (ago): week(s) (1) Consistency: Reports constant Severity: moderate Able to tolerate fluids by mouth: Yes Exacerbating factors: Reports deep breaths and other (coughing. palpation of chest. ) Relieving factors: Reports NSAID Associated symptoms: Reports denies other symptoms Treatments prior to arrival: Reports ibuprofen Related Data Previous Rx's ?Medication ?Instructions ?Recorded cephalexin 500 mg capsule 500 mg PO QID 5 days #20 caps 08/30/24 prednisone 20 mg tablet 40 mg (2 x 20 mg) PO DAILY 5 days 10/31/24 #10 tabs Allergies Allergy/AdvReac Type Severity Reaction Status Date / Time No Known Drug Allergies Allergy Verified 10/31/24 19:57 Review of Systems ROS Constitutional Denies: fever or chills Ears, nose, mouth, and throat Reports: nasal discharge; Denies: throat pain or neck pain Cardiovascular Reports: chest pain; Denies: palpitations, edema, swelling of feet/ankles, shortness of breath with exertion or shortness of breath when lying down Respiratory Reports: cough, pain on inspiration and chest congestion; Denies: shortness of breath, wheezing, change in phlegm color, coughing up blood or other Gastrointestinal Denies: abdominal pain or nausea Genitourinary Denies: painful urination Musculoskeletal Denies: back pain, neck pain or extremity pain Integumentary/Breast Denies: rash, itching or redness Neurological Denies: headache Psychiatric Denies: anxiety PFSH PFSH Social History Little interest or pleasure in doing things: not at all Feeling down, depressed, or hopeless: not at all Exam Narrative Exam Narrative: Nurses notes and vital signs reviewed and patient is not hypoxic. General: The patient appears well and in no apparent distress. Patient is resting comfortably on cart. Skin: Warm, dry, no pallor noted. No evidence of rash. Head: Normocephalic, atraumatic Neck: Supple, trachea mid-line, no tenderness, positive tender anterior cervical adenopathy. Eye: Pupils are equal, round and reactive to light, EOMI Ears, Nose, Mouth, and Throat: TM are clear, normal light reflex, oral mucosa is moist, poor dentition no evidence of abscess. No posterior oropharynx erythema or hypertrophy, uvula is mid-line,mild postnasal drainage noted Cardiovascular: Regular Rate and Rhythm Respiratory: Patient is in no distress, no accessory muscle use, lungs are clear to auscultation, no wheezing, rales or rhonchi. Chest Wall: Direct tenderness to palpation on the anterior chest wall no palpable rib crepitus. no Subcutaneous emphysema. Back: non-tender, no CVA tenderness Musculoskeletal: normal ROM, no tenderness, no swelling GI: Normal bowel sounds, no tenderness to palpation, no masses appreciated. No rebound, guarding, or rigidity noted. Neurological: A&O x4 Psychiatric: Cooperative Constitutional Vital Signs, click to edit/add: Last Vital Signs Temp 98.3 F 10/31/24 19:52 Pulse 72 10/31/24 19:52 Resp 16 10/31/24 19:52 BP 116/64 10/31/24 19:52 Pulse Ox 97 10/31/24 19:59 O2 Del Method Room Air 10/31/24 19:59 Course Vital Signs Vital signs: Vital Signs Temperature 98.3 F 10/31/24 19:52 Pulse Rate 72 10/31/24 19:52 Respiratory Rate 16 10/31/24 19:52 Blood Pressure 116/64 10/31/24 19:52 Pulse Oximetry 98 10/31/24 19:52 Oxygen Delivery Method Room Air 10/31/24 19:52 Temperature 98.3 F 10/31/24 19:52 Pulse Rate 72 10/31/24 19:52 Respiratory Rate 16 10/31/24 19:52 Blood Pressure 116/64 10/31/24 19:52 Pulse Oximetry 97 10/31/24 19:59 Oxygen Delivery Method Room Air 10/31/24 19:59 MDM - URI/Sore Throat MDM Narrative Medical decision making narrative: perc score is 0-no calf or leg pain or swelling. Patient with anterior chest wall pain reproducible to palpation, EKG without evidence of diffuse ST depression or [id number]. There is no change in symptoms with position patient notes pain is with coughing motion chest x-ray performed without evidence of pneumothorax and no infiltrate appreciated. Medicated with Toradol 60 mg IM. Urged him to cut back on his tobacco use. Discussed costochondritis symptoms from coughing and the possibility of pleurisy with recent upper respiratory infection. He has no personal or family history of PE or DVT denies any recent long travels flights or surgeries, Vital signs are within normal limits. Patient's chest x-ray preliminary 1 view shows no pneumothorax no infiltrate there is a small lung nodule in the right upper lung, we discussed this with the patient and recommended follow-up with his family doctor for repeat x-ray to document stability. 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 Discussed a prescription of prednisone to help with his chest wall inflammation he may take Tylenol. Patient agreeable and we discussed pleurisy but given the significant reproducibility with palpation and absence of swelling costochondritis is more suspect. Pre-existing cardiac disease history The patient is to followup with primary care physician in next 2-3 days or to return to the emergency department should any of the signs or symptoms worsen or new symptoms develop. Patient had questions answered. The patient agrees with the following Diagnosis and Treatment plan and the patient will be discharged home. ECG Data Attestation: I personally reviewed and interpreted this ECG as follows: Interpretation: EKG interpretation: Emergency Department physician interpretation, normal sinus rhythm 61 bpm, no ectopy, no ST segment elevation, normal axis. Discharge Plan Discharge Chief Complaint: Upper Respiratory Infection Clinical Impression: Anterior chest wall pain, Acute upper respiratory infection, Incidental lung nodule Patient Disposition: Home, Self-Care Time of Disposition Decision: 20:59 Prescriptions / Home Meds: New prednisone 20 mg tablet 40 mg PO DAILY 5 Days Qty: 10 0RF No Action cephalexin 500 mg capsule 500 mg PO QID 5 Days Qty: 20 0RF Print Language: [place] Instructions: Chest Wall Pain (ED) Referrals: Yeison Hall MD [Physician] - As soon as possible Physician,Non-Staff, [Primary Care Provider] - 1 week
[2024-10-31] MEDS: KETOROLAC TROMETHAMINE 60 MG/2 ML VIAL IM (20:27)
== END 2024-10-31 21:10 | disposition home or self-care (01) ==
PROVIDERS: Emergency Provider Emergency Medicine
DX: R07.89 Other chest pain (principal); J06.9 Acute upper respiratory infection, unspecified; R91.1 Solitary pulmonary nodule; F17.200 Nicotine dependence, unspecified, uncomplicated
CPT/HCPCS: 71045; 93005; 96372; 99285; J1885

== ENCOUNTER 2024-11-07 17:34 | Emergency (ER) | payer OTHER, SELFPAY ==
[2024-11-07] VITALS (13 sets, daily range): BP systolic 121; BP diastolic 78; PULSE 79–96; TEMP 36.9; O2SAT 97; BMI 25.8
--- OUTSIDE RECORDS SUMMARY | 2024-11-07 17:46 | XMS_ITS | CCD ---
Author Organization [facility] Inform ion Partnership [facility] Care Team Providers Care Veterinary Practitioner Name Role Phone George, Luke Unavailable Unavailable George, Luke Unavailable Unavailable AGUEDA, ALEIDA S Unavailable Unavailable AGUEDA, ALEIDA S Unavailable Unavailable AGUEDA, ALEIDA S Unavailable Unavailable GEORGE, LUKE A Unavailable Unavailable GEORGE, LUKE A Unavailable Unavailable GEORGE, LUKE A Unavailable Unavailable Geroge, Luke Unavailable Unavailable NO FAMILY, PHYSICIAN Primary Care Provider Unava ilable VERONICA Carvajal Attending Provider [phone] Broderick Carvajal Unavailable Elton Kovacs Admitting Unavailable Elton Kovacs Attending Unavailable NO FAMILY, PHYSICIAN Primary Care Unavailable Allergies Allergy Classification Reported Allergen(s) Allergy Type Date of Onset Reaction(s) Facility (3 sources) -No Environmental Allergies Allergy to substance (disorder) [facility] Work Phone: (3 sources) -No Known Food Allergies Allergy to substance (disorder) [facility] Work Phone: (3 sources) NO KNOWN DRUG ALLERGIES Allergy to substance (disorder) [facility] Work Phone: Medications Current Medications Medication Drug [...] 3V*on 022 XR foot LT min 3V* [facility] [employer] Other XR foot LT min 3V* [facility] [place] [employer] Other XR foot LT min 3V* [address] [facility] [employer] Other XR foot LT min 3V* LAUREANO Kenny [address] [employer] Other XR foot LT min 3V* XRay Report [employer] Other XR foot LT min 3V* Signed [employer] Other XR foot LT min 3V* Patient: Mickey Villa MR#: [id number] [employer] Other XR foot LT min 3V* 3 [employer] Other XR foot LT min 3V* : 1995 Acct:[id number] [employer] Other XR foot LT min 3V* Age/Sex: 26 / M ADM Date: 08/06/22 [employer] Other XR foot LT min 3V* Loc: [id number] Room: Type: [facility] [employer] Other XR foot LT min 3V* Attending Dr: Broderick Carvajal PA-C [employer] Other XR foot LT min 3V* Copies to: JAMES Rausch [employer] Other XR foot LT min 3V* Ordering Provider: JAMES Rausch [employer] Other XR foot LT min 3V* Date of Service: 08/06/22 [employer] Other XR foot LT min 3V* XR/XR foot LT min 3V*: Injury of left foot, initial encounter [employer] Other XR foot LT min 3V* ([id number]) XR/XR ankle LT min 3V*: Injury of left foot, initial encounter [employer] Other XR foot LT min 3V* 3views LEFTankle [employer] Other XR foot LT min 3V* COMPARISON:None N [facility] [employer] Other XR foot LT min 3V* HISTORY: LEFT foot a nd ankle injury [employer] Other XR foot LT min 3V* Lateral and anterior soft tissue swelling. Ankle mortise preserved. No fracture or dislocation. [employer] Other XR foot LT min 3V* XR/XR ankle LT min 3V* [employer] Other XR foot LT min 3V* IMPRESSION: No acute bony findings [employer] Other XR foot LT min 3V* 3 views LEFT foot [employer] Other XR foot LT min 3V* No fracture or dislocation. Soft tissues unremarkable. [employer] Other XR foot LT min 3V* IMPRESSION: No acute bony findings. [employer] Other XR foot LT min 3V* Impression dictated by: Sylvester Gaytan M.D.08/06/2022 5:25 PM [employer] Other XR foot LT min 3V* Dictation Location: [place] [address] [employer] Other XR foot LT min 3V* Transcribed By: PWS 08/06/22 172 [employer] Other XR foot LT min 3V* Dictated By: Sylvester Gaytan DO 08/06/22 [facility] [employer] Other XR foot LT min 3V* Signed By: [employer] Other XR foot LT min 3V* 08/06/[address] [place] [address] [employer] Other US RENAL LIMITEDon 8 US RENAL [...] by:CESAR Vasquezigned by:Kelin Ramirez MD02/17/18inal result Normal [facility] Metabolic Panelon 02-16-2018 Protein improving lifestyle behaviors Invalid Interpretation Code [facility] Otheron 02-16-2018 0=No Invalid Interpretation Code [facility] 7 Invalid Interpretation Code [facility] 1=Yes Invalid Interpretation Code [facility] 0= N/A Invalid Interpretation Code [facility] Risk Level 4=>10 Invalid Interpretation Code [facility] 3=Yes Invalid Interpretation Code [facility] 0-N/A Invalid Interpretation Code [facility] improving lifestyle behaviors Invalid Interpretation Code [facility] 11 Invalid Interpretation Code [facility] Urinalysis specialist review WNL Invalid Interpretation Code [facility] XR FOOT RIGHT (MIN 3 VIEWS)o n [...] ACUTE PROCESS SEENInterpreted by:CESAR Vasquezigned by:Kelin Ramirez MD6//18Final result Normal [facility] XR KNEE RIGHT (3 VIEWS)on XR KNEE RIGHT (3 VIEWS) REPORT: 3 views right kneeINDICATION: Pain status post fallFINDINGS: No acute fracture or dislocation is seen. Joint spaces are preserved. No joint effusion. Prepatellar soft tissue swelling.Final report electronically signed by Kelin Ramirez on 02/03/2018 9:23 AMIMPRESSION: PREPATELLAR SOFT TISSUE SWELLINGInterpreted by:CESAR Vasquezigned by:Kelin Ramirez MD6/18Final result [facility]acon 01-07-2018 Cholesterol 147 mg/dL Invalid Interpretation Code <200 [facility] HDL Cholesterol 47.0 mg/dL Invalid Interpretation Code >39 [facility] Triglyceride 115.0 mg/dL Invalid Interpretation Code <150 [facility] Hematologyon 01-07-2018 Basophils Auto #/vol (Bld) 0.5 % Invalid Interpretation Code [facility] Basophils/100 WBC Auto (Bld) 0.0 K/uL Invalid Interpretation Code 0.0-0.1 [facility] Eosinophils/100 leukocytes 3.1 % Invalid Interpretation Code [facility] Erythrocyte distribution width Auto Ratio (RBC) 13.3 % Invalid Interpretation Code 10.8-14.8 [facility] Erythrocytes (RBC) 5.090 10*6/uL Invalid Interpretation Code 4.00-5.50 [facility] Hematocrit (HCT) 44.80 % Invalid Interpretation Code 41.4-51.0 [facility] Hemoglobin S presence 15.6 Invalid Interpretation Code 13.8-17.0 [facility] Lipoprotein a mass conc 0.3 10*3/uL Invalid Interpretation Code 0.1-0.4 [facility] Lipoprotein a mass conc 2.0 10*3/uL Invalid Interpretation Code 0.8-5.2 [facility] Lipoprotein a mass conc 0.7 10*3/uL Invalid Interpretation Code 0.1-0.9 [facility] Lipoprotein a mass conc 4.9 10*3/uL Invalid Interpretation Code 1.3-9.1 [facility] Lymphocytes/100 leukocytes 25.7 % Invalid Interpretation Code [facility] Seventymm MCH 30.6 pg Invalid Interpretation Code 27.0-34.0 [facility] MCHC mass conc (RBC) 34.8 g/dL Invalid Interpretation Code 31.0-36.0 [facility] MCV 88.0 fL Invalid Interpretation Code 80.-100. [facility] Monocytes/100 leukocytes 8.3 % Invalid Interpretation Code [facility] Neutrophils/100 leukocytes 62.0 % Invalid Interpretation Code [facility] WBC (Leukocytes) 7.9 10*3/uL Invalid Interpretation Code 3.7-10.8 [facility] Imm/Pathon 01-07-2018 Hepatitis C antibody presence Positive Invalid Interpretation Code NEGATIVE [facility] Hepatitis C genotype 2 Invalid Interpretation Code [facility] Metabolic Panelon 01-07-2018 Alanine aminotransferase (ALT) 24 U/L Invalid Interpretation Code 5-50 [facility] Albumin 5.10 g/dL Invalid Interpretation Code 3.5-5.2 [facility] Alkaline phosphatase (ALP) 117 U/L Invalid Interpretation Code 39-118 [facility] Anion gap 17 mmol/L Invalid Interpretation Code 10-19 [facility] Aspartate aminotransferase (AST) 22 U/L Invalid Interpretation Code 9-50 [facility] Calcium 9.80 mg/dL Invalid Interpretation Code 8.5-10.5 [facility] Chloride 100 mmol/L Invalid Interpretation Code 95-107 [facility] CO2 25 mmol/L Invalid Interpretation Code 19-31 [facility] Creatinine 0.80 mg/dL Invalid Interpretation Code 0.8-1.4 [facility] eGFR (non-black) 145.9 mL/min/{1.73_m2} Invalid Interpretation Code >59 [facility] eGFR (non-black) 125.9 mL/min/{1.73_m2} Invalid Interpretation Code >59 [facility] Glucose mass conc 92 mg/dL Invalid Interpretation Code 70-99 [facility] Potassium molar conc 4.0 mmol/L Invalid Interpretation Code 3.5-5.4 [facility] Protein 7.6 g/dL Invalid Interpretation Code 6.1-8.3 [facility] Sodium 142 mmol/L Invalid Interpretation Code 135-146 [facility] Urea nitrogen 13.0 mg/dL Invalid Interpretation Code 8-23 [facility] Protein improving lifestyle behaviors Invalid Interpretation Code [facility] Otheron 01-07-2018 Bilirubin Ql (U) 0.6 Invalid Interpretation Code <1.3 [facility] Cholesterol crystals Infrared spectroscopy Ql (Stone) 147 mg/dL Invalid Interpretation Code <200 [facility] Cholesterol to HDL Ratio 3.1 {ratio} Invalid Interpretation Code <5 [facility] HCV RNA SerPl PCR-[facility] 7987528.0 IU/mL Invalid Interpretation Code H [facility] LDL to HDL Ratio 1.6 Invalid Interpretation Code <3.5 [facility] Lipoprotein.beta/Li poprotein.alpha mass ratio 1.6 Invalid Interpretation Code <3.5 [facility] PreB-LP SerPl-mCnc 23.0 mg/dL Invalid Interpretation Code <30 [facility] PreB-LP SerPl-mCnc 77.0 mg/dL Invalid Interpretation Code <130 [facility] WBC LM Ql (Sput) 7.9 Invalid Interpretation Code 3.7-10.8 [facility] 7.6 Invalid Interpretation Code 6.1-8.3 [facility] Negative Invalid Interpretation Code NEGATIVE [facility] 6.549 Invalid Interpretation Code H [facility] 182 Invalid Interpretation Code 150.-450. [facility] 145.9 Invalid Interpretation Code >59 [facility] 125.9 Invalid Interpretation Code >59 [facility] 0=No Invalid Interpretation Code [facility] improving lifestyle behaviors Invalid Interpretation Code [facility] Risk Level 4=>10 Invalid Interpretation Code [facility] 11 Invalid Interpretation Code [facility] 7 Invalid Interpretation Code [facility] 3=Yes Invalid Interpretation Code [facility] 0=N/A Invalid Interpretation Code [facility] 1=Yes Invalid Interpretation Code [facility] 0-N/A Invalid Interpretation Code [facility] 2 Invalid Interpretation Code [facility] Thyroidon 01-07-2018 Thyroid stimulating hormone (TSH) 1.140 uIU/mL Invalid Interpretation Code 0.4-4.1 [facility]acon 03-06-2015 Cholesterol 175 mg/dL Invalid Interpretation Code <200 [facility] HDL Cholesterol 68.0 mg/dL Invalid Interpretation Code 40-60 [facility] Triglyceride 120.0 mg/dL Invalid Interpretation Code <150 [facility] Imm/Pathon 03-06-2015 Hepatitis C genotype 2 Invalid Interpretation Code [facility] Metabolic Panelon 03-06-2015 Alanine aminotransferase (ALT) 33.0 U/L Invalid Interpretation Code 5-59 [facility] Albumin 4.20 g/dL Invalid Interpretation Code 3.2-5.3 [facility] Alkaline phosphatase (ALP) 89.0 U/L Invalid Interpretation Code 35-121 [facility] Anion gap 11 mmol/L Invalid Interpretation Code [facility] Aspartate aminotransferase (AST) 20.0 U/L Invalid Interpretation Code 10-42 [facility] Calcium 9.20 mg/dL Invalid Interpretation Code 8.7-10.8 [facility] Chloride 106 mmol/L Invalid Interpretation Code 95-111 [facility] CO2 25 mmol/L Invalid Interpretation Code 21-32 [facility] Creatinine 0.70 mg/dL Invalid Interpretation Code 0.5-1.3 [facility] eGFR (non-black) 144 mL/min/{1.73_m2} Invalid Interpretation Code >60 [facility] eGFR (non-black) 174 mL/min/{1.73_m2} Invalid Interpretation Code >60 [facility] Glucose mass conc 91 mg/dL Invalid Interpretation Code 70-100 [facility] Potassium molar conc 4.40 mmol/L Invalid Interpretation Code 3.5-5.4 [facility] Protein 7.0 g/dL Invalid Interpretation Code 5.8-8.0 [facility] Sodium 138 mmol/L Invalid Interpretation Code 134-147 [facility] Urea nitrogen 20.0 mg/dL Invalid Interpretation Code 10-20 [facility] Otheron 03-06-2015 7 Invalid Interpretation Code [facility] 4.0 Units Invalid Interpretation Code < 9 [facility] Seventymm 0.0 Units Invalid Interpretation Code <= 0 [facility] 1 Invalid Interpretation Code [facility] Bilirubin Ql (U) 0.4 Invalid Interpretation Code 0.2-1.3 [facility] Cholesterol crystals Infrared spectroscopy Ql (Stone) 175 mg/dL Invalid Interpretation Code <200 [facility] Cholesterol to HDL Ratio 2.6 {ratio} Invalid Interpretation Code <5 [facility] HCV RNA SerPl PCR-[facility] 0471879.0 IU/mL Invalid Interpretation Code H [facility] [employer] [facility] LDL to HDL Ratio 1.2 Invalid Interpretation Code <3.5 [facility] Lipoprotein.beta/Li poprotein.alpha mass ratio 1.2 Invalid Interpretation Code <3.5 [facility] PreB-LP SerPl-mCnc 83.0 mg/dL Invalid Interpretation Code <130 [facility] PreB-LP SerPl-mCnc 24.0 mg/dL Invalid Interpretation Code <30 [facility] 6.888 Invalid Interpretation Code H [facility] 7.0 Invalid Interpretation Code 5.8-8.0 [facility] 174 Invalid Interpretation Code >60 [facility] 144 Invalid Interpretation Code >60 [facility] Thyroidon 03-06-2015 Thyroid stimulating hormone (TSH) 2.050 uIU/mL Invalid Interpretation Code 0.40-4.40 [facility] Vital Signs Date Time Vital Sign Value Performing Clinician Facility 08-06-2022 18:05-0500 Body height Broderick Carvajal Other [facility] Other 08-06-2022 18:05-0500 Body mass index (BMI) [Ratio] 23.05 kg/m2 Broderick Carvajal Other [employer] Other 08-06-2022 18:05-0500 Body temperature 98 [degF] Broderick Carvajal Other [employer] Other 08-06-2022 18:05-0500 Body weight 77.11 kg Broderick Carvajal Other [employer] Other 08-06-2022 18:05-0500 Diastolic blood pressure 70 mm[Hg] Broderick Carvajal Other [employer] Other 08-06-2022 18:05-0500 Respiratory rate 20 /min Broderick Carvajal Other [employer] Other 08-06-2022 18:05-0500 SaO2% (BldA) [Mass fraction] 99 % Broderick Carvajal Other [employer] Other 08-06-2022 18:05-0500 Systolic blood pressure 118 mm[Hg] Broderick Wei Other [employer] Other 03-09-2018 17:18-0400 BMI (Body Mass Index) 24.01 kg/m2 [facility] 03-09-2018 17:18-0400 Body Temperature 98 [degF] [facility] 03-09-2018 17:18-0400 BP Diastolic 72 mm[Hg] [facility] 03-09-2018 17:18-0400 BP Systolic 110 mm[Hg] [facility] 03-09-2018 17:18-0400 BSA (Body Surface Area) 2.02 m2 [facility] 03-09-2018 17:18-0400 Height 182.88 cm [facility] 03-09-2018 17:18-0400 Pulse (Heart Rate) 113 /min [facility] 03-09-2018 17:18-0400 Pulse Oximetry 98 % [facility] 03-09-2018 17:18-0400 Respiratory Rate 18 /min [facility] 03-09-2018 17:18-0400 Weight 80.29 kg [facility] 02-16-2018 12:32-0400 BMI (Body Mass Index) 23.48 kg/m2 [facility] 02-16-2018 12:32-0400 Body Temperature 98.3 [degF] [facility] 02-16-2018 12:32-0400 BP Diastolic 60 mm[Hg] [facility] 02-16-2018 12:32-0400 BP Systolic 104 mm[Hg] [facility] 02-16-2018 12:32-0400 BSA (Body Surface Area) 2 m2 [facility] 02-16-2018 12:32-0400 Height 182.88 cm [facility] 02-16-2018 12:32-0400 Pulse (Heart Rate) 90 /min [facility] 02-16-2018 12:32-0400 Pulse Oximetry 98 % [facility] 02-16-2018 12:32-0400 Respiratory Rate 18 /min [facility] 02-16-2018 12:32-0400 Weight 78.53 kg [facility] 01-07-2018 11:03-0400 BMI (Body Mass Index) 23.62 kg/m2 [facility] 01-07-2018 11:03-0400 Body Temperature 98.1 [degF] [facility] 01-07-2018 11:03-0400 BP Diastolic 84 mm[Hg] [facility] 01-07-2018 11:03-0400 BP Systolic 130 mm[Hg] [facility] 01-07-2018 11:03-0400 BSA (Body Surface Area) 2 m2 [facility] 01-07-2018 11:03-0400 Height 182.88 cm [facility] 01-07-2018 11:03-0400 Pulse (Heart Rate) 84 /min [facility] 01-07-2018 11:03-0400 Pulse Oximetry 98 % [facility] 01-07-2018 11:03-0400 Respiratory Rate 18 /min [facility] 01-07-2018 11:03-0400 Weight 78.98 kg [facility] 06-30-2015 17:18-0400 BMI (Body Mass Index) 28.75 kg/m2 [facility] 06-30-2015 17:18-0400 Body Temperature 98.2 [degF] [facility] 06-30-2015 17:18-0400 BP Diastolic 75 mm[Hg] [facility] 06-30-2015 17:18-0400 BP Systolic 132 mm[Hg] [facility] 06-30-2015 17:18-0400 BSA (Body Surface Area) 2.21 m2 [facility] 06-30-2015 17:18-0400 Height 182.88 cm [facility] 06-30-2015 17:18-0400 Pulse (Heart Rate) 68 /min [facility] 06-30-2015 17:18-0400 Respiratory Rate 16 /min [facility] 06-30-2015 17:18-0400 Weight 96.16 kg [facility] 03-06-2015 15:48-0400 BMI (Body Mass Index) 24.55 kg/m2 [facility] 03-06-2015 15:48-0400 Body Temperature 97.8 [degF] [facility] 03-06-2015 15:48-0400 BP Diastolic 62 mm[Hg] [facility] 03-06-2015 15:48-0400 BP Systolic 121 mm[Hg] [facility] 03-06-2015 15:48-0400 BSA (Body Surface Area) 2.04 m2 [facility] 03-06-2015 15:48-0400 Height 182.88 cm [facility] 03-06-2015 15:48-0400 Pulse (Heart Rate) 78 /min [facility] 03-06-2015 15:48-0400 Respiratory Rate 16 /min [facility] 03-06-2015 15:48-0400 Weight 82.1 kg [facility] Encounters Encounter Date Encounter Type Care Provider Facility Start: 08-30-2024 End: 08-30-2024 Emergency department patient visit Elton Kovacs Facility:[facility] Start: 08-06-2022 End: 08-06-2022 Patient encounter procedure PHYSICIAN EDWINA WHITEHEAD [facility] Start: 08-06-2022 End: 08-06-2022 ambulatory PHYSICIAN NO [facility] Work Phone: Start: 08-06-2022 Office outpatient vi sit 15 minutes Broderick Carvajal [facility] [address] Start: 03-09-2018 Office outpatient vi sit 15 minutes [place] Other [facility] Start: 02-20-2018 End: 02-20-2018 Emergency department patient visit [facility] Start: 02-17-2018 End: 02-20-2018 Ambulatory [facility] Start: 02-16-2018 Office outpatient vi sit 15 minutes [place] Other [facility] Start: 02-16-2018 Us abdominal real ti me w/image limited [facility] Start: 02-02-2018 End: 02-05-2018 Ambulatory [facility] Start: 01-07-2018 Comprehensive metabo lic panel [facility] Start: 01-07-2018 Office outpatient ne w 45 minutes [place] Other [facility] Start: 06-30-2015 Substance Abuse Daryl Esperanza Other [facility] Start: 06-30-2015 Office outpatient vi sit 15 minutes Deborah Sams Other [facility] Start: 03-06-2015 Comprehensive metabo lic panel [facility] Start: 03-06-2015 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 [facility] Start: 03-06-2015 Nfct agnt genotyp nu cleic acid hepatitis c virus [facility] Start: 03-06-2015 Office outpatient ne w 20 minutes Michael Summers Other [facility] Procedures Date Procedure Procedure Detail Performing Clinician Start: 08-06-2022 X-ray of left ankle PHY SICANDREEA NO FAMILY Start: 08-06-2022 X-ray of left [...] 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 [place] Start: 01-07-2018 Lipid panel South [...] Iadna 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 [place] Start: 03-06-2015 Lipid panel [place] Start: 03-06-2015 Nfct agnt genotyp nu cleic acid hepatitis c virus [place] Start: 03-06-2015 Psychiatry: Coordina tion of Care for [facility] [place] Plan of Treatment Date Care Activity Detail Author Start: 02-16-2018 Ultrasonography of abdomen Limited abdominal ultrasound [facility] Payers Date Payer Category Payer Medicaid [id number] 2024 Self-pay [id number] 2018 Unknown NONE [id number] 2017 Private Health Insurance [id number] Medicaid [place] [employer] [id number] Unknown [id number] Unknown [id number] Social History Date Type Detail Facility [facility] Start: Current every day smoker [facility] Start: 10-31-2020 Tobacco smoking status NHIS Smoker (finding) [facility] Start: 1995 Sex Assigned At Male F [facility] Sex Assigned At Sex Assigned At Bir th [place] [employer] Other Evaluation note 08-06-2022 Note Date & [...] Pt understood and agreed to treatment plan. [employer] Other Evaluation note Note Date & Type Note Facility Evaluation note No assessment information availa [facility] Work Phone: History of Past Illness [...] pital DATE CREATED AUTHOR AUTHOR'S ORGANIZ ATION 11/07/2024 [facility] Care Teams (unrecognized sec tion [...] BE BASED ON THE PRIMARY CLINICAL RECORDS. [employer] provides no warranty or guarantee of the accuracy or completeness of information in this document.
--- NOTE | 2024-11-07 19:11 | ECG_ITS ---
[facility] Test Date: 2024-11-07 Pat Name: CATARINO SOOD Department: Room: - Gender: Male [employer]: : 1995 Requested By: [id number] Order Number: [id number] Reading MD: PHYLICIA LUCERO M.D. Measurements Intervals [place] Rate: 96 P: 82 KS: 122 QRS: 85 QRSD: 92 T: 68 QT: 344 QTc: 397 Interpretive Statements 1100 Sinus rhythm 1102 Sinus arrhythmia 2420 RSR (QR) in lead V1/V2, consistent with right ventricular conduction delay 9130 borderline ECG Compared to ECG 10/31/2024 20:33:28 Indeterminate axis no longer present Electronically Signed On 11-07-2024 20:28:16 EDT by PHYLICIA LUCERO M.D.
--- NOTE | 2024-11-07 20:05 | ED_ITS ---
Documented by User: [email or web address] Oneill 11/07/24 22:19 HPI - Chest Pain General Chief Complaint: Chest Pain Stated Complaint: CHEST PAIN Time Seen by Provider: 11/07/24 19:58 Source: patient Mode of arrival: walk-in Limitations: no limitations History of Present Illness HPI narrative: Patient is a 29-year-old male with no significant medical history who presents to the emergency department for worsening anterior chest pain. He was seen in this emergency department last week and diagnosed with pleurisy by EKG and chest x-ray. He states he was placed on prednisone which he took for 5 days. He states his prednisone course is completed but he continues to have worsening pain that is worse with deep breathing and movement. He is a half a pack per day cigarette smoker although he states he has not been smoking much over the last several days because it is uncomfortable. He has not had any fevers, chills, cough, hemoptysis or peripheral edema. He denies any history of heart or lung problems. Risk Factors Coronary artery disease risk factors: smoking history Related Data Previous Rx's ?Medication ?Instructions ?Recorded cephalexin 500 mg capsule 500 mg PO QID 5 days #20 caps 08/30/24 prednisone 20 mg tablet 40 mg (2 x 20 mg) PO DAILY 5 days 10/31/24 #10 tabs ketorolac 10 mg tablet 10 mg PO TID PRN pain #10 tabs 11/07/24 orphenadrine citrate 100 mg 100 mg PO BID PRN muscle pain #14 11/07/24 tablet,extended release tabs Allergies Allergy/AdvReac Type Severity Reaction Status Date / Time No Known Drug Allergies Allergy Verified 11/07/24 18:00 Review of Systems ROS Constitutional Denies: fever or chills Ears, nose, mouth, and throat Denies: throat pain or nasal congestion Cardiovascular Reports: chest pain Respiratory Denies: shortness of breath or cough Gastrointestinal Denies: nausea or vomiting Musculoskeletal Denies: back pain Integumentary/Breast Denies: rash Neurological Denies: numbness in extremities or weakness in extremities Hematologic/Lymphatic Denies: easy bruising or easy bleeding PFSH PFSH Social History Little interest or pleasure in doing things: not at all Feeling down, depressed, or hopeless: not at all Exam Narrative Exam Narrative: Gen.: Awake, alert, in no distress Head: Normocephalic, atraumatic ENT: Moist mucous membranes Respiratory: No respiratory distress, lungs clear bilaterally; tenderness of the sternum and anterior chest wall Cardio: Regular rate and rhythm Gastrointestinal: Abdomen is soft, nondistended and nontender to palpation Extremities: Moves extremities equally, no pedal edema Psych: Normal mood and affect Neuro: No focal neuro deficit Skin: Warm, dry, intact Constitutional Vital Signs, click to edit/add: Last Vital Signs Temp 98.5 F 11/07/24 17:56 Pulse 79 11/07/24 21:40 Resp 20 11/07/24 21:40 BP 121/78 11/07/24 17:56 Pulse Ox 97 11/07/24 17:56 O2 Del Method Room Air 11/07/24 17:56 Course Vital Signs Vital signs: Vital Signs Temperature 98.5 F 11/07/24 17:56 Pulse Rate 88 11/07/24 17:56 Respiratory Rate 16 11/07/24 17:56 Blood Pressure 121/78 11/07/24 17:56 Pulse Oximetry 97 11/07/24 17:56 Oxygen Delivery Method Room Air 11/07/24 17:56 Temperature 98.5 F 11/07/24 17:56 Pulse Rate 79 11/07/24 21:40 Respiratory Rate 20 11/07/24 21:40 Blood Pressure 121/78 11/07/24 17:56 Pulse Oximetry 97 11/07/24 17:56 Oxygen Delivery Method Room Air 11/07/24 17:56 MDM - Chest Pain MDM Narrative Medical decision making narrative: With significant difficulty obtaining IV access for this patient, as a result a D-dimer was not ordered. Patient has no PE risk factors and has a PERC score of 0 as he has no tachycardia, hypoxia, hemoptysis. He takes no medications regularly, he has not had any extremity swelling or history of PE/DVT. EKG is within normal limits. Chest x-ray was obtained. Patient was medicated with Toradol and Norflex for suspected chest wall pain versus pleurisy. He is hemodynamically stable. After multiple attempts, we were able to obtain blood to run labs. Chest x-ray, EKG, labs are unremarkable. Patient was reevaluated by attending physician and he will be discharged home with prescriptions for Toradol and Norflex to follow-up with PCP. Return to the ER if symptoms change or worsen. SHARED APC VISIT, PHYSICIAN ATTESTATION: [id number] I performed a substantive part of the MDM during the patient?s E/M visit. I personally evaluated and examined the patient. I personally made or approved the documented management plan and acknowledge its risk of complications. Medical Records Data Attestation: I reviewed the patient's medical records. Lab Data Attestation: I reviewed the patient's lab results. Labs: Lab Results 11/07/24 Range/Units 21:10 WBC 8.2 (4.0-11.0) 10^3/uL RBC 4.35 L (4.70-6.10) 10^6/uL Hgb 12.5 L (14.0-18.0) g/dL Hct 37.0 L (42.0-54.0) % MCV 85.1 (80.0-94.0) fL MCH 28.7 (25.9-34.0) pg MCHC 33.8 (29.9-35.2) g/dL RDW 12.4 (11.0-15.0) % Plt Count 209 (150-450) 10^3/uL MPV 9.2 L (9.5-13.5) fL Neut % (Auto) 55.2 (43.0-75.0) % Lymph % (Auto) 30.8 (20.5-60.0) % Prentiss % (Auto) 9.3 (1.7-12.0) % Eos % (Auto) 3.6 (0.9-7.0) % Baso % (Auto) 0.5 (0.2-2.0) % Neut # (Auto) 4.5 (1.4-6.5) 10^3/uL Lymph # (Auto) 2.5 (1.2-3.8) 10^3/uL Prentiss # (Auto) 0.8 (0.3-0.8) 10^3/uL Eos # (Auto) 0.3 (0.0-0.7) 10^3/uL Baso # (Auto) 0.0 (0.0-0.1) 10^3/uL Abs Immat Gran (auto) 0.05 H (0.00-0.03) 10^3/uL Imm/Tot Granulo (auto) 0.6 H (0.0-0.5) % Sodium 141 (136-145) mmol/L Potassium 3.5 (3.5-5.1) mmol/L Chloride 100 (98-107) mmol/L Carbon Dioxide 32.5 H (21.0-32.0) mmol/L Anion Gap 12.0 BUN 18.0 (7.0-18.0) mg/dL Creatinine 0.80 (0.70-1.30) mg/dL Est GFR ( Amer) >60 (>=60 mL/min/1.73m^2) Est GFR (Non-Af Amer) >60 (>=60 mL/min/1.73m^2) BUN/Creatinine Ratio 22.5 Glucose 88 (74-106) mg/dL Calcium 9.2 (8.5-10.1) mg/dL Total Bilirubin 0.3 (0.2-1.0) mg/dL AST 11 L (15-37) U/L ALT 22 (16-63) U/L Alkaline Phosphatase 90 (46-116) U/L Troponin I High Sens <4.0 L (4.0-76.1) pg/mL NT-Pro-B Natriuret Pep 80.0 (<=450.0) pg/mL Total Protein 7.8 (6.4-8.2) g/dL Albumin 3.8 (3.4-5.0) g/dL Globulin 4.0 g/dL Albumin/Globulin Ratio 0.9 Lipase 24.0 (16.0-77.0) U/L Imaging Data Chest x-ray: Attestation: I have reviewed the pertinent imaging results. ECG Data Attestation: I personally reviewed and interpreted this ECG as follows: (Normal sinus rhythm at a rate of 96 with sinus arrhythmia noted. No acute ST elevation or ectopy. EKG reviewed by attending physician) Heart Score History: Slightly/Non-Suspicious ECG: Normal Age: <45 years Risk Factors: 1 or 2 Risk Factors Troponin: <Normal Limit Total Heart Score Recommendations & Risks:: 1 Discharge Plan Discharge Chief Complaint: Chest Pain Clinical Impression: Atypical chest pain Patient Disposition: Home, Self-Care Time of Disposition Decision: 22:18 Condition: Good Prescriptions / Home Meds: New ketorolac 10 mg tablet 10 mg PO TID PRN (Reason: pain) Qty: 10 0RF orphenadrine citrate 100 mg tablet extended release 100 mg PO BID PRN (Reason: muscle pain) Qty: 14 0RF No Action cephalexin 500 mg capsule 500 mg PO QID 5 Days Qty: 20 0RF prednisone 20 mg tablet 40 mg PO DAILY 5 Days Qty: 10 0RF Print Language: Surinamese Instructions: Noncardiac Chest Pain (ED) Referrals: Physician,Non-Staff, [Primary Care Provider] - 1 week Discharge Date/Time: 11/07/24 23:54 Documented by User: Sylvester Ha MD 11/08/24 01:03 HPI - Chest Pain General Chief Complaint: Chest Pain Stated Complaint: CHEST PAIN Time Seen by Provider: 11/07/24 19:58 Related Data Previous Rx's ?Medication ?Instructions ?Recorded cephalexin 500 mg capsule 500 mg PO QID 5 days #20 caps 08/30/24 prednisone 20 mg tablet 40 mg (2 x 20 mg) PO DAILY 5 days 10/31/24 #10 tabs ketorolac 10 mg tablet 10 mg PO TID PRN pain #10 tabs 11/07/24 orphenadrine citrate 100 mg 100 mg PO BID PRN muscle pain #14 11/07/24 tablet,extended release tabs Allergies Allergy/AdvReac Type Severity Reaction Status Date / Time No Known Drug Allergies Allergy Verified 11/07/24 18:00 [facility] Social History Little interest or pleasure in doing things: not at all Feeling down, depressed, or hopeless: not at all Exam Constitutional Vital Signs, click to edit/add: Last Vital Signs Temp 98.5 F 11/07/24 17:56 Pulse 79 11/07/24 21:40 Resp 20 11/07/24 21:40 BP 121/78 11/07/24 17:56 Pulse Ox 97 03/09/25 17:56 O2 Del Method Room Air 11/07/24 17:56 Course Vital Signs Vital signs: Vital Signs Temperature 98.5 F 11/07/24 17:56 Pulse Rate 88 11/07/24 17:56 Respiratory Rate 16 11/07/24 17:56 Blood Pressure 121/78 11/07/24 17:56 Pulse Oximetry 97 11/07/24 17:56 Oxygen Delivery Method Room Air 11/07/24 17:56 Temperature 98.5 F 11/07/24 17:56 Pulse Rate 79 11/07/24 21:40 Respiratory Rate 20 11/07/24 21:40 Blood Pressure 121/78 11/07/24 17:56 Pulse Oximetry 97 11/07/24 17:56 Oxygen Delivery Method Room Air 11/07/24 17:56 MDM - Chest Pain MDM Narrative Medical decision making narrative: With significant difficulty obtaining IV access for this patient, as a result a D-dimer was not ordered. Patient has no PE risk factors and has a PERC score of 0 as he has no tachycardia, hypoxia, hemoptysis. He takes no medications regularly, he has not had any extremity swelling or history of PE/DVT. EKG is within normal limits. Chest x-ray was obtained. Patient was medicated with To radol and Norflex for suspected chest wall pain versus pleurisy. He is hemodynamically stable. After multiple attempts, we were able to obtain blood to run labs. Chest x-ray, EKG, labs are unremarkable. Patient was reevaluated by attending physician and he will be discharged home with prescriptions for Toradol and Norflex to follow-up with PCP. Return to the ER if symptoms change or worsen. SHARED APC VISIT, PHYSICIAN ATTESTATION: [id number] I performed a substantive part of the MDM during the patient?s E/M visit. I personally evaluated and examined the patient. I personally made or approved the documented management plan and acknowledge its risk of complications. I, Dr Ha, have reviewed the above progress note and course of action in the ER; agree with the above. I have personally seen and evaluated this patient, gone over history and physical, and discussed disposition and treatment plan with the patient. Lab Data Labs: Lab Results 11/07/24 Range/Units 21:10 WBC 8.2 (4.0-11.0) 10^3/uL RBC 4.35 L (4.70-6.10) 10^6/uL Hgb 12.5 L (14.0-18.0) g/dL Hct 37.0 L (42.0-54.0) % MCV 85.1 (80.0-94.0) fL MCH 28.7 (25.9-34.0) pg MCHC 33.8 (29.9-35.2) g/dL RDW 12.4 (11.0-15.0) % Plt Count 209 (150-450) 10^3/uL MPV 9.2 L (9.5-13.5) fL Neut % (Auto) 55.2 (43.0-75.0) % Lymph % (Auto) 30.8 (20.5-60.0) % Prentiss % (Auto) 9.3 (1.7-12.0) % Eos % (Auto) 3.6 (0.9-7.0) % Baso % (Auto) 0.5 (0.2-2.0) % Neut # (Auto) 4.5 (1.4-6.5) 10^3/uL Lymph # (Auto) 2.5 (1.2-3.8) 10^3/uL Prentiss # (Auto) 0.8 (0.3-0.8) 10^3/uL Eos # (Auto) 0.3 (0.0-0.7) 10^3/uL Baso # (Auto) 0.0 (0.0-0.1) 10^3/uL Abs Immat Gran (auto) 0.05 H (0.00-0.03) 10^3/uL Imm/Tot Granulo (auto) 0.6 H (0.0-0.5) % Sodium 141 (136-145) mmol/L Potassium 3.5 (3.5-5.1) mmol/L Chloride 100 (98-107) mmol/L Carbon Dioxide 32.5 H (21.0-32.0) mmol/L Anion Gap 12.0 BUN 18.0 (7.0-18.0) mg/dL Creatinine 0.80 (0.70-1.30) mg/dL Est GFR ( Amer) >60 (>=60 mL/min/1.73m^2) Est GFR (Non-Af Amer) >60 (>=60 mL/min/1.73m^2) BUN/Creatinine Ratio 22.5 Glucose 88 (74-106) mg/dL Calcium 9.2 (8.5-10.1) mg/dL Total Bilirubin 0.3 (0.2-1.0) mg/dL AST 11 L (15-37) U/L ALT 22 (16-63) U/L Alkaline Phosphatase 90 (46-116) U/L Troponin I High Sens <4.0 L (4.0-76.1) pg/mL NT-Pro-B Natriuret Pep 80.0 (<=450.0) pg/mL Total Protein 7.8 (6.4-8.2) g/dL Albumin 3.8 (3.4-5.0) g/dL Globulin 4.0 g/dL Albumin/Globulin Ratio 0.9 Lipase 24.0 (16.0-77.0) U/L Heart Score Total Heart Score Recommendations & Risks:: 1 Discharge Plan Discharge Chief Complaint: Chest Pain Clinical Impression: Atypical chest pain Patient Disposition: Home, Self-Care Time of Disposition Decision: 22:18 Condition: Good Prescriptions / Home Meds: New ketorolac 10 mg tablet 10 mg PO TID PRN (Reason: pain) Qty: 10 0RF orphenadrine citrate 100 mg tablet extended release 100 mg PO BID PRN (Reason: muscle pain) Qty: 14 0RF No Action cephalexin 500 mg capsule 500 mg PO QID 5 Days Qty: 20 0RF prednisone 20 mg tablet 40 mg PO DAILY 5 Days Qty: 10 0RF Print Language: Surinamese Instructions: Noncardiac Chest Pain (ED) Referrals: Physician,Non-Staff, MD [Primary Care Provider] - 1 week Discharge Date/Time: 11/07/24 23:54
[2024-11-07 21:18] LABS: Basophils Percent Auto 0.5 % (0.2-2.0); Eosinophils Absolute Auto 0.3 10^3/uL (0.0-0.7); Eosinophils Percent Auto 3.6 % (0.9-7.0); Hemoglobin 12.5 g/dL (14.0-18.0); Immature Granulocytes Abs Auto 0.05 10^3/uL (0.00-0.03); Immature Granulocytes Pct Auto 0.6 % (0.0-0.5); Lymphocytes Absolute Auto 2.5 10^3/uL (1.2-3.8); Lymphocytes Percent Auto 30.8 % (20.5-60.0); Mean Corpuscular HGB Conc 33.8 g/dL (29.9-35.2); Mean Corpuscular Hemoglobin 28.7 pg (25.9-34.0); Mean Corpuscular Volume 85.1 fL (80.0-94.0); Mean Platelet Volume 9.2 fL (9.5-13.5); Monocytes Absolute Auto 0.8 10^3/uL (0.3-0.8); Monocytes Percent Auto 9.3 % (1.7-12.0); Neutrophils Absolute Auto 4.5 10^3/uL (1.4-6.5); Neutrophils Percent Auto 55.2 % (43.0-75.0); Platelet Count 209 10^3/uL (150-450); Red Blood Count 4.35 10^6/uL (4.70-6.10); Red Cell Distribution Width 12.4 % (11.0-15.0); White Blood Count 8.2 10^3/uL (4.0-11.0)
[2024-11-07] MEDS: ORPHENADRINE 60 MG/ 2 ML VIAL IM (21:19)
[2024-11-07] MEDS: KETOROLAC TROMETHAMINE 30 MG/ML VIAL IVP (21:20)
[2024-11-07 22:03] LABS: Alanine Aminotransferase 22 U/L (16-63); Albumin Globulin Ratio 0.9; Albumin Level 3.8 g/dL (3.4-5.0); Alkaline Phosphatase 90 U/L (46-116); Aspartate Amino Transferase 11 U/L (15-37); BUN Creatinine Ratio 22.5; Bilirubin Total 0.3 mg/dL (0.2-1.0); Calcium 9.2 mg/dL (8.5-10.1); Carbon Dioxide 32.5 mmol/L (21.0-32.0); Chloride 100 mmol/L (98-107); Estimated GFR (African America >60 (>=60 mL/min/1.73m^2); Estimated GFR (Non-African Ame >60 (>=60 mL/min/1.73m^2); Glucose 88 mg/dL (74-106); Potassium 3.5 mmol/L (3.5-5.1); Sodium 141 mmol/L (136-145); Total Protein 7.8 g/dL (6.4-8.2)
[2024-11-07 22:10] LABS: Troponin I High Sensitivity <4.0 pg/mL (4.0-76.1)
== END 2024-11-07 23:54 | disposition home or self-care (01) ==
PROVIDERS: Physician Assistant; Emergency Provider Emergency Medicine
DX: R07.89 Other chest pain (principal); F17.210 Nicotine dependence, cigarettes, uncomplicated
CPT/HCPCS: 36415; 71046; 80053; 83690; 83880; 84484; 85025; 85610; 93005; 96372; 96374; 99285; J1885; J2360